=== PATIENT | male | born 2000 | race Hispanic/Latino ===

== ENCOUNTER 2022-09-11 12:59 | Emergency (ER) | payer MEDICAID | END 2022-09-11 14:57 | disposition home or self-care (01) | LOC: ERS 12:59 | DX: J10.1 Influenza due to other identified influenza virus with other respiratory manifestations (principal) | CPT/HCPCS: 87804; 99283 ==

== ENCOUNTER 2023-05-20 17:16 | Emergency (ER) | payer SELFPAY ==
[2023-05-20] MEDS ORDERED: fentaNYL 50 mcg/mL 1 mL Vial ONE ×2 (18:07→18:23)
[2023-05-20] MEDS ORDERED: CEFAZOLIN 1 GM VIAL ONE ×2 (18:23→19:07)
[2023-05-20] MEDS ORDERED: Bupivacaine 0.25% 10 ML VIAL ONE (19:07)
[2023-05-20] MEDS ORDERED: Boostrix 0.5 ML (Tdap) VIAL (>/=7 yrs of age) ONE (19:07)
[2023-05-20] MEDS ORDERED: Ketorolac Tromethamine 30 MG/ML VIAL ONE (22:43)
== END 2023-05-20 22:53 | disposition short-term general hospital (02) ==
LOC: ERS 17:16
DX: S62.606A Fracture of unspecified phalanx of right little finger, initial encounter for closed fracture (principal); W23.0XXA Caught, crushed, jammed, or pinched between moving objects, initial encounter
CPT/HCPCS: 26742; 90471; 90715; 96365; 96366; 96372; 96375; J0690; J1885; J3010; S0020